=== PATIENT | female | born 1975 | race Caucasian/White ===

== ENCOUNTER → 2016-06-21 | Outpatient (CLI) | payer BC ==
[~2016-06-21] MED LIST: B-COTAB53 PO; FLUT0.15 INH; NAPR-1169 PO; ONDA4TAB10 SL; PEDICHW34 PO
--- NOTE | 2016-06-21 15:35 | MAMMOGRAPHY REPORT ---
BILATERAL FIRST EVER DIGITAL SCREENING MAMMOGRAM TOMOSYNTHESIS WITH CAD: 06/21/2016 CLINICAL HISTORY: Routine screening. Patient has no complaints. TECHNIQUE: Breast tomosynthesis in addition to standard 2D mammography was performed. Current study was also evaluated with a Computer Aided Detection (CAD) system. COMPARISON: No prior exams were available for comparison. BREAST COMPOSITION: There are scattered areas of fibroglandular density in both breasts. FINDINGS: No suspicious masses, calcifications, or areas of architectural distortion are noted in e ither breast. IMPRESSION: ACR BI-RADS CATEGORY 1: NEGATIVE There is no mammographic evidence of malignancy. A 1 year screening mammogram is recommended. The p atient will receive written notification of the results. Approximately 10% of breast cancers are not detected with mammography. A negative mammographic repor t should not delay biopsy if a clinically suggestive mass is present. Nga Moya M.D. ah/:06/21/2016 15:19:16 Field Crew Chief: Heaven BARRON(Evangelist)(Jayme), [facility] letter sent: Normal 1/2 BI-RADS Code: ACR BI-RADS Category 1: Negative
== END | disposition home or self-care (01) ==
LOC: C.MAMM 09:44
PROVIDERS: ATTEND Obstetrics & Gynecology
DX: Z12.31 Encounter for screening mammogram for malignant neoplasm of breast (principal)

== ENCOUNTER 2016-12-06 13:22 | Emergency (ER) | payer BC, OTHER ==
[~2016-12-06] VITALS: Ht 162.6 cm; Wt 103.0 kg
[2016-12-06 13:27] VITALS: Ht 162.6 cm; Wt 103.0 kg
[2016-12-06] MEDS ORDERED: SODIUM CHLORIDE 0.9% 1000ML 1,000 ML IV STA ×2 (13:44→14:51)
[2016-12-06] MEDS ORDERED: ONDANSETRON INJ 2 MG/ML 2 ML VIAL IV STA (13:44)
--- NOTE | 2016-12-06 13:52 | EMERGENCY ROOM VISIT NOTE ---
History First contact with patient: 13:36 Chief Complaint: VOMITING Stated Complaint: VOMITING X 23 HOURS Nursing Triage Summary: pt sent over by PMD for n/v/d and mild abd pain History of Present Illness The patient is a 41 year old female who presents to the Emergency Room with complaints of nausea, vomiting, diarrhea. The patient states that her symptoms started around 2 PM yesterday. She had multiple episodes of vomiting and developed diarrhea today. She has not been able to keep down anything. She states that she has had some abdominal spasm with the vomiting. She contacted her family doctor's office and they told her to come to the emergency department. She rates her discomfort a 2/10. She denies any fevers or chills. She denies any pain in her chest or trouble breathing. She denies any true abdominal pain. She denies any melena or hematochezia or hematemesis. She denies any recent illness. She denies any known sick contacts. She denies any recent antibiotic use. She denies any recent travel or swimming in any body of water. Review of Systems A 10 system review of systems was completed with positives and pertinent negatives listed in the HPI. Past Medical/Surgical History patient denies Social History Smoking Status: Never Smoker Marital Status: Housing Status: lives with family Current/Historical Medications Scheduled B-Complex W/ Folic Acid (B Complex), 1 TAB PO 1200 Ondasetron Odt (Zofran Odt), 4 MG SL Q6H Pediatric Multiple Vitamin W/ ([place] Multivitamin/M), 1 TAB PO DAILY Scheduled PRN Fluticasone Propionate (Nasal) (Flonase Allergy Relief), 1 SPRAY INH UD PRN for Nasal Congestion Naproxen (Naprosyn), 500 MG PO BID PRN for Pain Allergies Uncoded Allergies: BANDAID ADHESIVE (Allergy, Mild, rash, 05/20/13) NKDA (Allergy, Unknown, 10/22/03) Physical Exam Vital Signs Date Time Temp Pulse Resp B/P (MAP) Pulse Ox O2 Delivery O2 Flow Rate FiO2 12/06/16 17:05 36.9 85 16 141/91 93 12/06/16 17:02 85 16 141/91 93 Room Air 12/06/16 16:23 93 16 145/91 93 Room Air 12/06/16 16:00 84 16 146/98 94 Room Air 12/06/16 15:18 90 16 128/93 94 Room Air 12/06/16 14:16 95 16 132/97 94 Room Air 12/06/16 13:27 36.9 109 16 138/93 97 Room Air Physical Exam VITALS: Vitals are noted on the nurse's note and reviewed by myself. Vital signs stable. GENERAL: This is a 41 year old female, in no acute distress, nondiaphoretic, well-developed well-nourished. SKIN: The skin was without rashes, erythema, edema, or bruising. There is no tenting of the skin. Capillary reflex less than 2 seconds. HEAD: Normocephalic atraumatic. EARS: The external ears normal in appearance. EYES: Pupils equal round and reactive to light and accommodation. Conjunctivae without injection, sclerae without icterus. Extraocular movements intact. NOSE: Patent, turbinates without inflammation or discharge. MOUTH: Mucous membranes moist. Tonsils are not enlarged. Pharynx without erythema or exudate. Uvula midline. Airway patent. Tongue does not deviate. NECK: Supple without nuchal rigidity. No lymphadenopathy. No thyromegaly. Cervical spine is nontender. No JVD. HEART: Regular rate and rhythm without murmurs gallops or rubs. LUNGS: Clear to auscultation bilaterally without wheezes, rales or rhonchi. No retractions or accessory muscle use. ABDOMEN: Positive bowel sounds x 4. Soft, nontender, without masses or organomegaly. MUSCULOSKELETAL: No muscle atrophy, erythema, or edema noted. Full range of motion in all extremities.. Normal gait. Strength 5/5 throughout. NEURO: Patient was alert and oriented to person place and time. No focal neurological deficits. Medical Decision & Procedures Laboratory Results 12/06/16 14:24 Red Blood Count 4.73, Mean Corpuscular Volume 88.8, Mean Corpuscular Hemoglobin 30.2, Mean Corpuscular Hemoglobin Concent 34.0, Mean Platelet Volume 10.6, Neutrophils (%) (Auto) 86.8, Lymphocytes (%) (Auto) 8.9, Monocytes (%) (Auto) 4.1, Eosinophils (%) (Auto) 0.0, Basophils (%) (Auto) 0.0, Neutrophils # (Auto) 5.30, Lymphocytes # (Auto) 0.54, Monocytes # (Auto) 0.25, Eosinophils # (Auto) 0.00, Basophils # (Auto) 0.00 12/06/16 14:24 Test 12/06/16 14:00 12/06/16 14:24 Urine Color DK YELLOW Urine Appearance CLOUDY (CLEAR) Urine pH 6.0 (4.5-7.5) Urine Specific [place] 1.031 (1.000-1.030) Urine Protein TRACE (NEG) Urine Glucose (UA) NEG (NEG) Urine Ketones 2+ (NEG) Urine Occult Blood NEG (NEG) Urine Nitrite NEG (NEG) Urine Bilirubin NEG (NEG) Urine Urobilinogen NEG (NEG) Urine Leukocyte Esterase NEG (NEG) Urine WBC (Auto) 1-5 /hpf (0-5) Urine RBC (Auto) 5-10 /hpf (0-4) Urine Hyaline Casts (Auto) 5-10 /lpf (0-5) Urine Epithelial Cells (Auto) >30 /lpf (0-5) Urine Bacteria (Auto) 1+ (NEG) Urine Test NEG (NEG) White Blood Count 6.10 K/uL (4.8-10.8) Red Blood Count 4.73 M/uL (4.2-5.4) Hemoglobin 14.3 g/dL (12.0-16.0) Hematocrit 42.0 % (37-47) Mean Corpuscular Volume 88.8 fL (80-100) Mean Corpuscular Hemoglobin 30.2 pg (25-34) Mean Corpuscular Hemoglobin Concent 34.0 g/dl (32-36) Platelet Count 230 K/uL (130-400) Mean Platelet Volume 10.6 fL (7.4-10.4) Neutrophils (%) (Auto) 86.8 % Lymphocytes (%) (Auto) 8.9 % Monocytes (%) (Auto) 4.1 % Eosinophils (%) (Auto) 0.0 % Basophils (%) (Auto) 0.0 % Neutrophils # (Auto) 5.30 K/uL (1.4-6.5) Lymphocytes # (Auto) 0.54 K/uL (1.2-3.4) Monocytes # (Auto) 0.25 K/uL (0.11-0.59) Eosinophils # (Auto) 0.00 K/uL (0-0.5) Basophils # (Auto) 0.00 K/uL (0-0.2) RDW Standard Deviation 43.3 fL (36.4-46.3) RDW Coefficient of Variation 13.2 % (11.5-14.5) Immature Granulocyte % (Auto) 0.2 % Immature Granulocyte # (Auto) 0.01 K/uL (0.00-0.02) Anion Gap 5.0 mmol/L (3-11) Est Creatinine Clear Calc Drug Dose 106.6 ml/min Estimated GFR () 103.7 Estimated GFR (Non- 89.5 BUN/Creatinine Ratio 13.5 (10-20) Calcium Level 8.8 mg/dl (8.5-10.1) Total Bilirubin 0.2 mg/dl (0.2-1) Aspartate Amino Transf (AST/SGOT) 18 U/L (15-37) Alanine Aminotransferase (ALT/SGPT) 32 U/L (12-78) Alkaline Phosphatase 78 U/L (45-117) Total Protein 7.6 gm/dl (6.4-8.2) Albumin 3.9 gm/dl (3.4-5.0) Globulin 3.7 gm/dl (2.5-4.0) Albumin/Globulin Ratio 1.1 (0.9-2) Lipase 101 U/L (73-393) Medications Administered Medications (Trade) Dose Ordered Sig/Deysi Route Start Time Stop Time Status Last Admin Dose Admin Sodium Chloride 1,000 ml @ 999 mls/hr Q1H1M STAT IV 12/06/16 13:44 12/06/16 14:44 DC 12/06/16 14:15 999 MLS/HR Ondansetron HCl (Zofran Inj) 4 mg NOW STAT IV 12/06/16 13:44 12/06/16 13:45 DC 12/06/16 14:16 4 MG Sodium Chloride 1,000 ml @ 999 mls/hr Q1H1M STAT IV 12/06/16 14:51 12/06/16 15:51 DC 12/06/16 15:14 999 MLS/HR Ketorolac Tromethamine (Toradol Inj) 30 mg NOW STAT IV 12/06/16 15:24 12/06/16 15:25 DC 12/06/16 15:52 30 MG ED Course The patient was seen and examined. Previous visits were reviewed. The patient does not have a fever or leukocytosis. She does not have any significant electrolyte abnormality. Lipase is not elevated. Urinalysis suggests contamination. There are also urine ketones suggestive of dehydration. The patient was hydrated with normal saline 2 L She was given 4 mg IV Zofran and her nausea resolved She did develop a mild headache and was given 30 mg IV Toradol and the headache resolved The patient presents with nausea, vomiting and diarrhea since yesterday. She does not have any focal tenderness on abdominal examination. I did repeat abdominal examination prior to discharge and she had no abdominal tenderness. She has no fever or leukocytosis. She is nontoxic in appearance. This may represent a viral gastroenteritis. She was given a prescription for Zofran and a note for work. She should return with any worsening symptoms. Otherwise, she should follow with her family doctor next week. The case was discussed with who agrees with the assessment and management plan. Blood Pressure Screening: Patient was found to have a slightly elevated blood pressure due to circumstances. I do not believe that the patient requires hypertension monitoring. Medication Reconciliation: I attest that I have personally reviewed the patient' s current medication list. Medical Decision DIFFERENTIAL DIAGNOSIS: Hepatitis, cholecystitis, cholangitis, biliary colic, pancreatitis, pneumonia, subdiaphragmatic abscess, appendicitis, inguinal hernia , nephrolithiasis, inflammatory bowel disease, mesenteric adenitis, peptic ulcer disease, GERD, gastritis, pancreatitis, myocardial infarction, pericarditis, ruptured aortic aneurysm, appendicitis, gastroenteritis, bowel obstruction, splenic infarct, diverticulitis, mesenteric ischemia, metabolic, peritonitis, among others. Impression Primary Impression: Nausea, vomiting, and diarrhea Departure Information Dispostion Home / Self-Care Condition GOOD Prescriptions Ondasetron Odt (ZOFRAN ODT) 4 Mg Tab 4 MG SL Q6H for Nausea, #20 TAB Prov: Humaira Moe PA-C 12/06/16 Referrals Tala Jean M.D. (PCP) Forms HOME CARE DOCUMENTATION FORM, IMPORTANT VISIT INFORMATION, Work Instructions Return To Work: 3 days Patient Instructions ED Food Poison Or Gastroenteritis, My [facility] Additional Instructions Zofran as prescribed, as needed for nausea and vomiting Return with any fevers, right-sided abdominal pain or generalized worsening symptoms Recheck with your family doctor next week if symptoms are not resolved
[2016-12-06 14:33] LABS: URINE APPEARANCE CLOUDY (CLEAR); URINE BILIRUBIN NEG (NEG); URINE COLOR DK YELLOW; URINE EPITHELIAL CELL AUTO >30 /lpf (0-5); URINE NITRITE NEG (NEG); URINE SPECIFIC GRAVITY 1.031 (1.000-1.030); UROBILINOGEN NEG (NEG); ZZUR CULT IF INDIC CLEAN CATCH YES
[2016-12-06 14:42] LABS: MANUAL MICROSCOPIC REQUIRED? NO; REVIEW REQ? NO
[2016-12-06 14:46] LABS: COMPLETE YES; IG% 0.2 %; LYMPH % 8.9 %; LYMPH ABS # 0.54 K/uL (1.2-3.4); MEAN CELL VOLUME 88.8 fL (80-100); MEAN CORPUSCULAR HEMOGLOBIN 30.2 pg (25-34); MEAN PLATELET VOLUME 10.6 fL (7.4-10.4); MONO % 4.1 %; NEUT % 86.8 %; PLATELET COUNT 230 K/uL (130-400); RED BLOOD COUNT 4.73 M/uL (4.2-5.4)
[2016-12-06] MEDS ORDERED: NAPR-1169 PO (14:52)
[2016-12-06] MEDS ORDERED: B-COTAB53 PO (14:52)
[2016-12-06] MEDS ORDERED: PEDICHW34 PO (14:52)
[2016-12-06] MEDS ORDERED: FLUT0.15 INH (14:52)
[2016-12-06 15:10] LABS: BUN/CREATININE RATIO 13.5 (10-20); CALCIUM 8.8 mg/dl (8.5-10.1); CREATININE 0.82 mg/dl (0.60-1.20); POTASSIUM 3.6 mmol/L (3.5-5.1)
[2016-12-06 15:13] LABS: ALB/GLOB RATIO 1.1 (0.9-2)
[2016-12-06] MEDS ORDERED: KETOROLAC TROMETHAMINE 30 MG/ML VIAL IV STA (15:24)
[2016-12-06] MEDS ORDERED: ONDA4TAB10 SL (16:14)
[2016-12-06 17:05] VITALS: BP 141/91; PULSE 85; TEMP 36.9; O2SAT 93
== END 2016-12-06 17:06 | disposition home or self-care (01) ==
LOC: C.EDB 13:25 → C.EDC 17:06
DX: R11.2 Nausea with vomiting, unspecified (principal); R19.7 Diarrhea, unspecified

== ENCOUNTER → 2017-07-22 | Outpatient (CLI) | payer OTHER ==
[~2017-07-22] MED LIST changes: -ONDA4TAB10 SL
== END ==
LOC: C.PAPS 18:04
PROVIDERS: ATTEND Obstetrics & Gynecology
DX: Z01.419 Encounter for gynecological examination (general) (routine) without abnormal findings (principal)

== ENCOUNTER → 2017-08-20 | Outpatient (CLI) | payer OTHER ==
--- NOTE | 2017-08-21 14:12 | MAMMOGRAPHY REPORT ---
BILATERAL DIGITAL SCREENING MAMMOGRAM TOMOSYNTHESIS WITH CAD: 08/20/2017 CLINICAL HISTORY: Routine screening. Patient reported to the technologist that her clinical provider felt a mobile palpable lump in the left upper outer quadrant and told her that it was likely normal tissue. TECHNIQUE: Breast tomosynthesis in addition to standard 2D mammography was performed. Current study was also evaluated with a Computer Aided Detection (CAD) system. COMPARISON: Comparison is made to exam dated: 06/21/2016 mammogram - [facility]. BREAST COMPOSITION: There are scattered areas of fibroglandular density in both breasts. FINDINGS: No suspicious masses, calcifications, or areas of architectural distortion are noted in ei ther breast. There has been no significant interval change compared to prior exams. IMPRESSION: ACR BI-RADS CATEGORY 1: NEGATIVE There is no mammographic evidence of malignancy. A 1 year screening mammogram is recommended. Also r ecommend clinical follow-up for the palpable left breast lump felt by the patient's clinical provider during a breast exam; if this is suspicious clinically then further evaluation with ultrasound could be performed. The patient will receive written notification of the results. Approximately 10% of breast cancers are not detected with mammography. A negative mammographic report should not delay biopsy if a clinically suggestive mass is present. Nga Moya M.D. ah/:08/20/2017 14:58:46 [employer]chandising [employer] Associate: Heaven GOODRICH)(M), [facility] letter sent: Normal 1/2 BI-RADS Code: ACR BI-RADS Category 1: Negative
== END | disposition home or self-care (01) ==
LOC: C.MAMM 14:23
PROVIDERS: ATTEND Obstetrics & Gynecology
DX: Z12.31 Encounter for screening mammogram for malignant neoplasm of breast (principal)

== ENCOUNTER → 2017-08-29 | Outpatient (CLI) | payer OTHER | END | disposition home or self-care (01) | LOC: C.PATHSPEC 16:57 | PROVIDERS: ATTEND Podiatrist Foot & Ankle Surgery | DX: B07.9 Viral wart, unspecified (principal) ==